=== PATIENT | male | born 1995 | race Caucasian/White ===

== ENCOUNTER 2016-07-25 23:52 | Emergency (ER) | payer OTHER ==
--- NOTE | ~2016-07-25 | CT71 ---
[facility] A Service [facility] RADIOLOGY TEXT RESULTS PATIENT: DON JARAMILLO LOCATION: [facility] : 95 UNIT #: [id number] AGE: [address]: Al William MD SEX: M ORDER DR: [id number] [facility] [address] [place], [place] [address] [id number] MR#: [id number] Acc #: [id number] NAME: DON JARAMILLO : 1995 SEX: M STUDY DATE/TIME: 07/26/2016 01:29 UNIT: GIL ROOM: STUDY DESCRIPTION: CT Head Wo Contrast Attending Physician: Al William M.D. Ordering Physician: Al William M.D. Primary Care Physician: Niranjan Mckeon M.D. MEDICAL IMAGING REPORT This report is preliminary unless electronic signature is present EXAM Head CT, 07/26/2016 at 01:29 INDICATION Possible Spice overdose tonight. Patient smoked Spice and now has headaches and dizziness and mental status changes. COMPARISON 05/27/[address] exam was performed with one or more of the following radiation dose reduction techniques: automatic exposure control, adjustment of mA and/or kV according to patient size, and iterative reconstruction. FINDINGS Axial noncontrast images were obtained from the skull base to the vertex. Ventricular size and configuration are normal. There is no evidence of acute infarct or hemorrhage. There are no extra-axial fluid collections. No mass lesion or mass effect is seen. There are no skull fractures. IMPRESSION Normal noncontrast head CT. Dictated by... Jerry Castellano Jr., M.D. THIS IS AN ELECTRONICALLY VERIFIED REPORT Jerry Castellano Jr., M.D. at 07/26/2016 10:17 PM NICHOLAS/heather TD: 07/26/2016 03:13 [facility] A Service [facility] RADIOLOGY TEXT RESULTS PATIENT: DON JARAMILLO LOCATION: [facility] : 95 UNIT #: [id number] AGE: [address]: Al William MD SEX: M ORDER DR: SAKSHI #: [id number] MEDICAL IMAGING REPORT Page 1 of 1 COPY
[~2016-07-25 23:52] MED LIST: ADOXA100 MG PO; ALBUTEROL20 ml INH; CIPRO PO; FLEXERIL PO; KEFLEX PO; NO MEDICATIONS; PHENERGAN25 M1 PO; ULTRAM PO; VOLTAREN75 MG PO
[2016-07-26 00:12] LABS: BASOPHIL% 0.3 % (0-2.5); EOSINOPHIL# 0.2 X10e3 (0-0.7); EOSINOPHIL% 2.3 % (0.0-7.0); HEMATOCRIT 39.3 % (38.0-50.0); LYMPHOCYTE# 1.2 X10e3 (1.0-3.5); MEAN CELL VOLUME 89.7 FL (83-96); MEAN CORPUSCULAR HEMOGLOBIN 29.7 PG (28-34); MEAN CORPUSCULAR HGB CONC 33.1 g/dL (30-36); MEAN PLATELET VOLUME 8.5 FL (6.5-11.5); MONOCYTE# 1.1 X10e3 (0-1.0); MONOCYTE% 13.1 % (3.0-12.0); NEUTROPHIL# 6.1 X10e3 (1.5-7.1); NEUTROPHIL% 70.3 % (40-75); PLATELET COUNT 270 X10e3 (140-420); RED BLOOD COUNT 4.38 X10e (3.90-5.60); RED CELL DISTRIBUTION WIDTH 12.3 % (11.0-15.5); WHITE BLOOD COUNT 8.7 X10e3 (4.0-10.5)
[2016-07-26 00:16] LABS: DIFF IND NO
[2016-07-26 00:37] LABS: ALBUMIN SERUM 3.7 g/dL (3.5-5.0); ALKALINE PHOSPHATASE 62 U/L (32-92); ALT (SGPT) 59 U/L (10-40); AST (SGOT) 41 U/L (10-42); BILIRUBIN,TOTAL 0.3 mg/dL (0.2-2.0); BLOOD UREA NITROGEN 20 mg/dL (9-23); CALCIUM SERUM 9.1 mg/dL (8.4-10.2); CARBON DIOXIDE 28 mmol/L (22-31); CHLORIDE 97 mmol/L (100-111); GLOM FILT RATE Estimated 107.1 mL/min (>60); GLUCOSE FASTING 120 mg/dL (70-110); PROTEIN TOTAL SERUM 7.1 g/dL (6.0-8.3); SALICYLATE <4.0 mg/dL; SODIUM 136 mmol/L (135-145)
[2016-07-26 00:44] LABS: ACETAMINOPHEN <10 ug/mL; BILIRUBIN, DIRECT <0.1 mg/dL (0.0-0.2); BILIRUBIN,INDIRECT 0.2 mg/dL (0.0-0.9)
[2016-07-26 00:45] LABS: ALCOHOL BLOOD <5 mg/dL (0)
[2016-07-26] MEDS ORDERED: BACTRIM 400-801 EACH (22:20)
[2016-07-26] MEDS ORDERED: NEURONTIN (22:21)
== END 2016-07-26 05:00 | disposition home or self-care (01) ==
LOC: CED 23:52
PROVIDERS: Emergency Medicine
DX: F12.10 Cannabis abuse, uncomplicated (principal); F32.9 Major depressive disorder, single episode, unspecified; F17.200 Nicotine dependence, unspecified, uncomplicated; Z79.899 Other long term (current) drug therapy
CPT/HCPCS: 36415; 70450; 80048; 80076; 82947; 85025; 96361; 96374; 96375; 96376; 99284; G0480; J2405

== ENCOUNTER 2016-07-26 22:27 | Emergency (ER) | payer OTHER ==
--- NOTE | ~2016-07-26 | EKG ---
PATIENT: DON JARAMILLO UNIT #: [id number] Ventricular Rate: 103 BPM Atrial Rate: 103 BPM P-R Interval: 162 ms QRS Duration: 98 ms Q-T Interval: 374 ms QTC Calculation(Bezet): 489 ms P Florence: 68 degrees Calculated R [place]: 88 degrees Calculated T [place]: 47 degrees Diagnosis Line: Sinus tachycardia Diagnosis Line: Possible Left atrial enlargement Diagnosis Line: RSR' or QR pattern in V1 suggests right Diagnosis Line: ventricular conduction delay Diagnosis Line: Borderline ECG Diagnosis Line: No previous ECGs available Diagnosis Line: Confirmed by SENAIT DENT MD ([id number]) on Diagnosis Line: 08/02/2016 7:16:50 AM INTERPRETING MD: JULIUS
[~2016-07-26 22:27] MED LIST changes: +BACTRIM 400-801 EACH; +NEURONTIN
[2016-07-26 23:08] LABS: ALBUMIN SERUM 3.5 g/dL (3.5-5.0); ALKALINE PHOSPHATASE 53 U/L (32-92); ALT (SGPT) 56 U/L (10-40); AST (SGOT) 43 U/L (10-42); BILIRUBIN,TOTAL 0.2 mg/dL (0.2-2.0); BLOOD UREA NITROGEN 13 mg/dL (9-23); BUN/CREATININE RATIO 11.81; CARBON DIOXIDE 30 mmol/L (22-31); CHLORIDE 105 mmol/L (100-111); CREATININE SERUM 1.1 mg/dL (0.6-1.4); GLOM FILT RATE Estimated 95.5 mL/min (>60); GLUCOSE FASTING 169 mg/dL (70-110); POTASSIUM 3.7 mmol/L (3.5-5.1); PROTEIN TOTAL SERUM 6.7 g/dL (6.0-8.3); SALICYLATE <4.0 mg/dL; SODIUM 142 mmol/L (135-145)
[2016-07-26 23:14] LABS: ACETAMINOPHEN <10 ug/mL; ALCOHOL BLOOD <5 mg/dL (0); BILIRUBIN, DIRECT <0.1 mg/dL (0.0-0.2); BILIRUBIN,INDIRECT 0.1 mg/dL (0.0-0.9)
== END 2016-07-27 02:04 | disposition home or self-care (01) ==
LOC: SED 22:27
PROVIDERS: Emergency Medicine
DX: T40.601A Poisoning by unspecified narcotics, accidental (unintentional), initial encounter (principal); F32.9 Major depressive disorder, single episode, unspecified; F17.200 Nicotine dependence, unspecified, uncomplicated
CPT/HCPCS: 36415; 80048; 80076; 93005; 96374; 99283; G0480; J2310

== ENCOUNTER 2016-08-11 16:31 | Emergency (ER) | payer OTHER | END 2016-08-11 16:37 | disposition home or self-care (01) | LOC: SED 16:31 | DX: R68.84 Jaw pain (principal); G89.18 Other acute postprocedural pain; F32.9 Major depressive disorder, single episode, unspecified; F17.210 Nicotine dependence, cigarettes, uncomplicated; Z91.013 Allergy to seafood; Z79.899 Other long term (current) drug therapy | CPT/HCPCS: 99282 ==

== ENCOUNTER 2016-11-20 19:12 | Emergency (ER) | payer OTHER | END 2016-11-20 19:20 | disposition left against medical advice (07) | LOC: CED 19:12 | DX: Z53.21 Procedure and treatment not carried out due to patient leaving prior to being seen by health care provider (principal) ==